=== PATIENT | female | born 1990 | race Caucasian/White ===

== ENCOUNTER 2018-11-25 07:32 | Inpatient (IN) ==
[2018-11-25] MEDS ORDERED: OXYTOCIN 30 UNITS/500 ML BAG IV PRN ×2 (08:28)
[2018-11-25 08:51] LABS: Hematocrit (blood only) 37.4 % (37-47); Hemoglobin 12.9 g/dL (12.0-16.0); Mean Corpuscular Hemoglobin 33.7 pg (25-34); Mean Corpuscular Volume 97.7 fL (80-100); Mean Platelet Volume 10.9 fL (7.4-10.4); Platelet Count 143 K/uL (130-400); RDW Coefficient of Variation 12.8 % (11.5-14.5); RDW Standard Deviation 45.1 fL (36.4-46.3); Red Blood Count 3.83 M/uL (4.2-5.4); White Blood Count 11.91 K/uL (4.8-10.8)
[2018-11-25 09:17] LABS: Mean Corpuscular Hgb Conc 34.5 g/dL (32-36)
[2018-11-25] MEDS: LACTATED RINGER'S 1,000 ML IV PRN ×3 (09:37→17:40)
--- NOTE | 2018-11-25 09:38 | History & Physical Report ---
Date of Service November 25, 2018 Assessment & Plan (1) Post term at 41 weeks gestation: 28 yo white female who presents for induction of labor because of post term . will begin pitocin induction anticipate vaginal History of Present Illness Primary Care Provider: HALINA Brennan Patient is a 28 yo white female EDC 11/15/18 who presents for induction of labor because of post term . otherwise is uncomplicated. GBS (-) Allergies Allergy/AdvReac Type Severity Reaction Status Date / Time No Known Drug Allergies Allergy Verified 11/19/18 11:05 Home Medications Home Medications Medication Instructions Recorded Confirmed Type vit-iron fum-folic ac 1 tab PO DAILY 11/25/18 11/25/18 History [ Vitamin] Patient History Medical History History of clubfoot History of varicella Surgical History S/P tonsillectomy Family History Grandmother (Maternal) Diabetes Hypertension Social History Preferred Language: Filipino Beliefs That Will Affect Care: None marital status: Current Living Situation: Spouse Other Information That Helps Us Care for You: No Feels Safe at Home: Yes Safety Concerns: Feels Safe At This Time Smoking Status: Never smoker Hx Alcohol Use: No Hx Substance Use: No Review of Systems All systems reviewed & are unremarkable except as noted in HPI & below Physical Exam Constitutional: WD/WN, vitals as above Respiratory: normal respiratory effort, lungs clear to auscultation Cardiovascular: RRR, no murmur, no edema Gastrointestinal (Abdomen): normal bowel sounds, soft, nontender, no hepatosplenomegaly Psychiatric: A+Ox3, euthymic affect Genitourinary: OB Exam Abdomen: + vertex, + estimated weight (8-9 ounds) and + irregular contractions Manual OB Exam: + cervical dilation 4 cm, + cervical effacement 50% and + station (-3) OB Exam Monitor Tracing: + external FHT monitor used, + external uterine monitor used, + category I and + normal FHT variability Results & Data Vital Signs (Past 12 Hours) Vital Signs Temp Pulse Resp BP 11/25/18 08:32 98.2 F 20 11/25/18 07:44 88 118/75
[2018-11-25] MEDS ORDERED: fentaNYL citrate 100 MCG/2 ML VIAL ONE (13:52)
[2018-11-25] MEDS ORDERED: ePHEDrine sulfate 50 MG/ML AMP ONE (13:52)
[2018-11-25] MEDS ORDERED: BUPIVACAINE 0.25% 30 ML VIAL ONE (13:53)
[2018-11-25] MEDS ORDERED: fentaNYL 2MCG/ML ROPIV 1.25MG/ML 100 ML BAG EPI ONE (14:06)
--- NOTE | 2018-11-25 14:10 | Anesthesiology Consultation ---
Date of Service November 25, 2018 Assessment & Plan Chart Review Chart Review: Patient NOT seen in Pre Admission Testing and Acceptable Risk for Labor Epidural Consults Requested none ASA ASA2 Proposed Anesthesia Anesthesia Type: Labor Epidural and CSE Risk / Benefits Reviewed With: PT / POA / Parent / Guardian, Accepts Plan and Informed Consent Obtained History Height/Weight Height: 5 ft 8 in Weight: 113.398 kg Allergies Allergy/AdvReac Type Severity Reaction Status Date / Time No Known Drug Allergies Allergy Verified 11/19/18 11:05 Medications Home Medications Medication Instructions Recorded Confirmed Last Taken vit-iron fum-folic ac 1 tab PO DAILY 11/25/18 11/25/18 11/25/18 06:30 [ Vitamin] Active Medications Generic Name Dose Route Start Last Admin Trade Name Freq PRN Reason Stop Dose Admin Lactated Ringer's 1,000 mls @ 125 mls/hr 11/25/18 08:28 11/25/18 09:37 Lr IV 11/27/18 08:27 125 mls/hr .Q8H PRN Administration L&D Protocol Protocol Oxytocin 30 units in 500 mls @ 7 mls/hr 11/25/18 08:28 11/25/18 11:42 Pitocin IV 11/27/18 08:27 0.42 units/hr .Q24H PRN 7 mls/hr Labor Induction/Augmentation Titration Protocol 0.42 UNITS/HR NPO Date Last Intake of Fluids: 11/25/18 Time Last Intake of Fluids: 13:00 Date Last Intake of Solids: 11/25/18 Time Last Intake of Solids: 06:00 Past Medical History Medical History History of clubfoot History of varicella Exercise / Class Metabolic Activity II 4-5 Yardwork/Stairs/Walk up hill Past Family History Family History Grandmother (Maternal) Diabetes Hypertension Past Surgical History Surgical History S/P tonsillectomy Past Anesthesia History No Hx of Anesthesia Complications and No Family Hx of Anesthesia Complications History of PONV No Hx of PONV and No Hx of Motion Sickness Social History Smoking Status: Never smoker Hx Alcohol Use: No Hx Substance Use: No substance use type: does not use Review of Systems no chest pain or sob Physical Exam Vital Signs Last Vital Signs Temp 36.9 C 11/25/18 12:01 Pulse 93 H 11/25/18 14:09 Resp 20 11/25/18 12:01 BP 121/74 11/25/18 14:08 Pulse Ox 97 11/25/18 14:09 ENMT Mouth: no TMJ abnormality Thyromental Distance: > or= 3.5 Finger Breadths Mallampati Class: II Neck normal visual inspection Respiratory normal respiratory effort Auscultation: lungs clear to auscultation bilaterally Cardiovascular Rate/Rhythm: regular rate and regular rhythm Musculoskeletal Spine: normal cervical ROM Neurologic moves all extremities Psychiatric Orientation: alert and oriented x 3 Testing Laboratory Results 11/25/18 08:40
[2018-11-25] MEDS ORDERED: NALOXONE HCL 1 MG in SODIUM CHLORIDE 0.9% 1000ML 1,000 ML IV PRN (14:12)
[2018-11-25] MEDS ORDERED: fentaNYL 2MCG/ML ROPIV 1.25MG/ML 100 ML BAG EPI PRN (14:12)
[2018-11-25] MEDS ORDERED: ePHEDrine sulfate 50 MG/ML AMP IV PRN (14:12)
[2018-11-25] MEDS ORDERED: ONDANSETRON INJ 2 MG/ML 2 ML VIAL IV PRN (14:12)
[2018-11-25] MEDS ORDERED: NALBUPHINE HCL INJ 10 MG/ML AMP IV PRN (14:12)
[2018-11-25] MEDS ORDERED: NALOXONE HCL 0.4 MG/1 ML VIAL/CARP IV PRN (14:12)
[2018-11-25] MEDS ORDERED: DiphenhydrAMINE HCL 50 MG/ML VIAL IV PRN (14:12)
--- NOTE | 2018-11-26 04:58 | Delivery Summary ---
DATE OF OPERATION: 11/26/2018 The patient is a 27-year-old G1, P0 white female who presents at 41+ weeks for induction of labor because of post-term . She received Pitocin augmentation of her contractions. Membranes were ruptured for clear fluid, approximately 4 cm dilated. She received effective epidural analgesia. She progressed to full dilation and pushed to . Because of maternal exhaustion, the vacuum was attempted, but popped off immediately, off of the caput; this was attempted twice. She then continued to push further bringing the caput to the perineum with manual stretching of the perineum. A medial lateral episiotomy was performed. At this point, the infant through maternal effort was delivered directly occiput posterior. There was terminal meconium. There was double nuchal cord which was reduced after delivery of the head. The rest of the delivered easily and was placed on the mother's abdomen for further attention and drying. There was vigorous crying and the was moving all 4 limbs. After a minute, the cord was clamped and cut. After cord blood was obtained, the placenta was expressed intact with a 3-vessel cord. The medial lateral episiotomy was repaired with 3-0 chromic in the usual fashion. Estimated blood loss was 400 mL. bleeding was controlled with dilute Pitocin. I attest to the content of the Intraoperative Record and any orders documented therein. Any exceptions are noted below. MTDD
[2018-11-26] MEDS ORDERED: OXYTOCIN 30 UNITS/500 ML BAG IV PRN (05:35)
[2018-11-26] MEDS ORDERED: DIPHTHERIA/TETANUS/PERTUSSIS 0.5 ML SYR/VIAL IM ONE (05:35)
[2018-11-26] MEDS ORDERED: HYDROCORTISONE ACETATE 25 MG SUPP PR PRN (05:35)
[2018-11-26] MEDS ORDERED: BENZOCAINE 20% AER SPR 82.5 GM CAN EXT PRN (05:35)
[2018-11-26] MEDS ORDERED: SUPERCREAM 0.870% 15 GM JAR EXT PRN (05:35)
[2018-11-26] MEDS ORDERED: OXYCODONE/ACETAMINOPHEN 5mg/325mg TAB PO PRN (05:35)
[2018-11-26] MEDS ORDERED: bisacodyL 10 MG SUPP PR PRN (05:35)
[2018-11-26] MEDS: IBUPROFEN 600 MG TAB PO PRN ×2 (08:07→14:53)
[2018-11-26] MEDS: PRENATAL VITAMIN 1 TAB PO SCH (08:07)
[2018-11-26] MEDS: DOCUSATE SODIUM 100 MG CAP PO SCH ×2 (08:07→21:06)
--- NOTE | 2018-11-26 08:51 | Anesthesia Procedure Note ---
Date of Service November 26, 2018 Anesthesia Post Epidural Note Vital Signs Vital Signs: Temp Pulse Resp BP Pulse Ox 36.7 C 104 H 18 120/76 97 11/26/18 08:30 11/26/18 08:30 11/26/18 08:30 11/26/18 08:30 11/26/18 08:30 Pain Intensity Bilateral Lower Abdomen: Pain Intensity: 3 Notes Mental Status: alert / awake / arousable and participated in evaluation Nausea / Vomiting: adequately controlled Pain: adequately controlled Airway Patency, RR, SpO2: stable & adequate BP & HR: stable & adequate Hydration State: stable & adequate Neuraxial Anesthesia: was administered and sensory block is resolving Anesthetic Complications: no major complications apparent Epidural: Removed without complications and With tip intact
[2018-11-26] MEDS: ACETAMINOPHEN 325 MG TAB PO PRN (16:41)
[2018-11-27] MEDS: IBUPROFEN 600 MG TAB PO PRN ×4 (00:13→14:41)
--- NOTE | 2018-11-27 05:06 | Obstetrical Progress Note ---
Date of Service November 27, 2018 Assessment & Plan (1) : 27 yo s/p VD @ 41w4d -PPD# 1 - GBS negative, Blood Type A- - Feels well today. Eating well, voiding well, ambulating well. - Pain well controlled. - Routine care - After discharge will have [address] Cornejo. Subjective Doing well this morning. Pain well controlled with Motrin. is going well. Bleeding is less than a heavy period and improving. She wanted to be discharged this afternoon if possible. Review of Systems Review of Systems: Denies fever, chills, sweats Denies shortness of breath, difficulty breathing, chest pain, palpitations. chest pressure. Denies breast pain. Denies dysuria. Denies headache. Physical Exam Physical Exam: General: Alert, oriented. No acute distress. Cardiac: Regular rate and rhythm, no murmurs/rubs/gallops. Respiratory: Clear to auscultation anterior and posteriorly, no wheezes/rales/rhonchi. No increased work of breathing. Symmetrical chest rise. No respiratory distress. Abdomen: Soft, nontender, nondistended. Bowel sounds present. Uterus: Uterine fundus firm, palpable 1 cm below umbilicus. Lower Extremities: No lower extremity edema or swelling. No deep calf pain. Justice's negative bilaterally. Results & Data Vital Signs (Past 12 Hours) Vital Signs Temp Pulse Resp BP Pulse Ox 11/27/18 00:05 36.5 C 98 H 16 114/73 98 11/26/18 20:00 37.0 C 108 H 16 113/80 97 PG Care Time/CCT Total # of Minutes Spent Total Time Spent with Patient: Total time spent is greater than 50% in coordination of care (as documented) at patient's floor/unit and/or counseling patient: Resident Activity Tracking Resident Involvement: Resident Care Provided Care Provided: OB Delivery
[2018-11-27 06:24] LABS: Hematocrit (blood only) 27.9 % (37-47); Hemoglobin 9.7 g/dL (12.0-16.0); Mean Corpuscular Hemoglobin 34.2 pg (25-34); Mean Corpuscular Hgb Conc 34.8 g/dL (32-36); Mean Corpuscular Volume 98.2 fL (80-100); Mean Platelet Volume 10.3 fL (7.4-10.4); Platelet Count 140 K/uL (130-400); RDW Standard Deviation 46.4 fL (36.4-46.3); Red Blood Count 2.84 M/uL (4.2-5.4); White Blood Count 17.75 K/uL (4.8-10.8)
--- NOTE | 2018-11-27 06:34 | Obstetrical Progress Note ---
Date of Service November 27, 2018 Assessment & Plan (1) : 27 yo s/p VD @ 41w4d -PPD# 1 - GBS negative, Blood Type A- - Feels well today. Eating well, voiding well, ambulating well. - Pain well controlled. - Routine care - After discharge will have [address] Cornejo. Supervising Physician Co-Signing Physician Notes Resident Physician Supervision Note: I interviewed and examined the patient. Discussed with Dr. Sacnhes and agree with findings and plan as documented in the note. Any exceptions or clarifications are listed here: Doing well. Routine care. Desires d/c this evening. Instructions reviewed. Documented By: Delores Hunter MD, FACOG Subjective Doing well this morning. Pain well controlled with Motrin. is going well. Bleeding is less than a heavy period and improving. She wanted to be discharged this afternoon if possible. Review of Systems Review of Systems: Denies fever, chills, sweats Denies shortness of breath, difficulty breathing, chest pain, palpitations. ches t pressure. Denies breast pain. Denies dysuria. Denies headache. Physical Exam Physical Exam: General: Alert, oriented. No acute distress. Cardiac: Regular rate and rhythm, no murmurs/rubs/gallops. Respiratory: Clear to auscultation anterior and posteriorly, no wheezes/rales/rhonchi. No increased work of breathing. Symmetrical chest rise. No respiratory distress. Abdomen: Soft, nontender, nondistended. Bowel sounds present. Uterus: Uterine fundus firm, palpable 1 cm below umbilicus. Lower Extremities: No lower extremity edema or swelling. No deep calf pain. Justice's negative bilaterally. Results & Data Vital Signs (Past 12 Hours) Vital Signs Temp Pulse Resp BP Pulse Ox 11/27/18 00:05 36.5 C 98 H 16 114/73 98 11/26/18 20:00 37.0 C 108 H 16 113/80 97 PG Care Time/CCT Total # of Minutes Spent Total Time Spent with Patient: Total time spent is greater than 50% in coordination of care (as documented) at patient's floor/unit and/or counseling patient:
[2018-11-27] MEDS: ACETAMINOPHEN 325 MG TAB PO PRN (07:28)
[2018-11-27] MEDS: DOCUSATE SODIUM 100 MG CAP PO SCH (10:11)
[2018-11-27] MEDS: PRENATAL VITAMIN 1 TAB PO SCH (10:12)
[2018-11-27] MEDS ORDERED: bisacodyL 5 MG TABEC PO SCH (20:00)
--- NOTE | 2018-11-29 06:03 | Discharge Summary ---
PRINCIPAL DIAGNOSES: Intrauterine at 41 weeks and successful induction of labor with vacuum-assisted vaginal delivery. HISTORY AND HOSPITAL COURSE: The patient is a 27-year-old G1, P0 white female who presented at 41 weeks for induction of labor because of post-term . Pitocin augmentation was used to augment her contractions. Membranes were ruptured for clear fluid. She received effective epidural analgesia and began to push when she was fully dilated. After an hour and a half because of maternal exhaustion and the infant's caput was at the introitus, a vacuum application was attempted, but was unsuccessful. This was tried twice, the vacuum cup would not stay attached and slipped right off with each application. After this, she continued to push more effectively after the Pitocin was increased and this was accompanied by manual stretching of the perineum. Once the bony portion of the vertex was at the hymenal ring, a mediolateral episiotomy was performed, at this point, the mother was able to easily deliver the rest of the infant. The patient had no complications. She was voiding without difficulty, ambulating without difficulty and eating regular diet the following morning of her delivery. She was sent home in good condition with the usual instructions.
== END 2018-11-27 18:15 | disposition home or self-care (01) | DRG 807 ==
LOC: 4S1 07:32 → 4S2 11-26 06:22

== ENCOUNTER 2021-04-13 07:40 | Inpatient (IN) ==
[2021-04-13] MEDS ORDERED: OXYTOCIN 30 UNITS/500 ML BAG IV PRN ×4 (08:13→20:03)
--- NOTE | 2021-04-13 08:27 | History & Physical Report ---
Date of Service April 13, 2021 Assessment & Plan (1) with 39 completed weeks gestation: (2) Encounter for induction of labor: Plan: Plan pitocin induction, epidural on demand, arom when indicated. efw 8-9. fetus category one. Will need rhogam. gbs negative. hx of covid earlier in the year. anticipate . Admission and Anticipated Discharge Date Admission Date: April 13, 2021 History of Present Illness Chief Complaint: presents for induction Primary Care Provider: HALINA Brennan Patient is a 30yowf with iup at39 4/7 weeks who presents for elective induction. Patient had an 8#7oz baby last delivery and pushed for approximately 4 hours and wanted early induction. has been uncomplicated. Notes good fm. Some cramping and spotting since hadley placed last night. It has not fallen out. and Delivery Plans (+) COVID 02/24/21 symptoms started 02/23 fully vaccinated- booster mid December 2020 Need for Rhogam d/t Rh negative mother -repeat antibody screen at 12 wks due to +screen at NO[facility] from miscarriage--still positive -repeat antibody screen at 14 weeks due to + screen at 12 weeks. -14wk screen negative. Rhogam given 01/23/21 SB *pt needs antibody screen and Rhogam on 04/17/21 if undelivered. Elective IOL- 04/13/21 with [facility]. OB Labs: Blood Type A Negative 09/02/20 Antibody Screen NEGATIVE 01/23/21 Hemoglobin 12.9 g/dL (12.0-16.0) 01/20/21 Hematocrit 38.5 % (37-47) 01/20/21 Mean Corpuscular Volume 92.8 fL (80-100) 09/02/20 Platelet Count 196 K/uL (130-400) 09/02/20 Rubella IgG Antibody Immune (Immune) 09/02/20 Rapid Plasma Reagin Nonreactive (Nonreactive) 09/02/20 Hepatitis B Surface Antigen Neg (Neg) 09/02/20 HIV (1&2) Ab and P24 Ag, 4th Gener Neg (Neg) 09/02/20 Glucose 1 Hour 50 gm Load 129 mg/dl (70-130) 01/20/21 Maternal Serum Alpha Fetoprotein 29.9 ng/mL 10/28/20 OB Optional Labs: Chlamydia trachomatis RNA NOT DETECTED (NOT DETECTED) 09/02/20 Neisseria gonorrhoeae RNA NOT DETECTED (NOT DETECTED) 09/02/20 Alpha Fetoprotein Triple Screen SEE NOTE 10/28/20 Labs Reviewed: cf/sma neg previous --akh msafp--negative cfDNA low risk \GBS negative. Allergies Allergy/AdvReac Type Severity Reaction Status Date / Time No Known Drug Allergies Allergy Unknown Verified 04/13/21 07:53 Home Medications Medication Instructions Recorded Confirmed Type prenat.vits,pankaj,eif-kicb-blfnb 1 cap PO DAILY 06/20/20 04/13/21 History Patient History Medical History History of clubfoot History of varicella Surgical History S/P clubfoot correction at S/P ear surgery ear canal reconstruction S/P myringotomy with insertion of tube S/P tonsillectomy Family History Grandmother (Maternal) Diabetes Hypertension Denies family history of Ovarian cancer Breast cancer Colorectal cancer Social History Smoking Status: Never smoker Hx Alcohol Use: No Hx Substance Use: No Preferred Language: Cook Islander Plate Developer Required: No Beliefs That Will Affect Care: None marital status: marital status details: Osman Franco (34) [phone] Current Living Situation: Spouse and Family Current Living Situation Comment: lives with spouse, son, no pets current occupational status: employed 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 Date GA wks Lbr Lgth wt Sex Type del Anes Place Del Prov ? Comment 11/26/18 41 8lb 7.1oz M Epi dural [facility] 06/08/20 Aborted-Spontaneous HOSPITALIST MEDICAL DIRECTOR History noncontributory Physical Exam Constitutional: WD/WN, vitals as above Cardiovascular: Extremities: no calf tenderness and no edema Gastrointestinal (Abdomen): soft, gravid, nt Psychiatric: A+Ox3, euthymic affect Genitourinary: cx--4/50/-2/soft, post toco--rare efm--130s wtih mod variability, accels to 150s, no decels hadley removed with slight tug of the bulb. Results & Data ([facility]) Vital Signs (Past 12 Hours) Vital Signs Temp Pulse Resp BP 04/13/21 07:50 36.7 C 78 18 110/69 04/13/21 07:49 78 110/69 Coding Level of Care Code None Diagnoses with 39 completed weeks gestation Z3A.39 Encounter for induction of labor Z34.90
[2021-04-13] MEDS: LACTATED RINGER'S 1,000 ML IV PRN ×3 (08:39→16:00)
[2021-04-13 08:42] LABS: Hematocrit (blood only) 36.1 % (37-47); Hemoglobin 12.5 g/dL (12.0-16.0); Mean Corpuscular Hemoglobin 33.7 pg (25-34); Mean Corpuscular Hgb Conc 34.6 g/dL (32-36); Mean Corpuscular Volume 97.3 fL (80-100); Mean Platelet Volume 10.8 fL (7.4-10.4); Platelet Count 154 K/uL (130-400); RDW Standard Deviation 46.1 fL (36.4-46.3); Red Blood Count 3.71 M/uL (4.2-5.4); White Blood Count 11.53 K/uL (4.8-10.8)
--- NOTE | 2021-04-13 09:53 | Medical Student H&P ---
Date of Service April 13, 2021 Assessment & Plan (1) with 39 completed weeks gestation: Plan: Patient is a 30-year-old female with IUP at 39 4/7 weeks based on LMP consistent with first trimester ultrasound who presents to labor and delivery for elective induction of labor. Plan: Pitocin induction. Epidural on demand, will artificially rupture membranes when indicated. Patient will need rhogam ( A- blood type). GBS negative. Rubella immune. category 1 based on EFM. COVID-19 infection Feb 2020, s/p fully vaccinated with booster Jan 01. Anticipate normal spontaneous vaginal delivery Per Dr. Hunter: efw 8-9. (2) Encounter for induction of labor: Admission and Anticipated Discharge Date Admission Date: April 13, 2021 History of Present Illness Chief Complaint: elective induction of labor Primary Care Provider: HALINA Brennan Patient is a 30-year-old female with IUP at 39 4/7 weeks based on LMP consistent with first trimester ultrasound who presents to labor and delivery for elective induction of labor. Patient delivered an 8 lb 7 oz baby after approx 4 hours of pushing in Nov 2018 and wished to deliver earlier for this . She states the baby is very active. She denies bleeding, leaking of fluid, or contractions at this time. 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 Patient tested positive for COVID 02/24/21, with sxs starting 02/23. She is fully vaccinated, with booster in Dec 2020. Patient has A- blood type, will need Rhogam. GBS -. Rubella immune. OB Labs: F Blood Type A Negative 09/02/20 Antibody Screen NEGATIVE 01/23/21 Hemoglobin 12.9 g/dL (12.0-16.0) 01/20/21 Hematocrit 38.5 % (37-47) 01/20/21 Mean Corpuscular Volume 92.8 fL (80-100) 09/02/20 Platelet Count 196 K/uL (130-400) 09/02/20 Rubella IgG Antibody Immune (Immune) 09/02/20 Rapid Plasma Reagin Nonreactive (Nonreactive) 09/02/20 Hepatitis B Surface Antigen Neg (Neg) 09/02/20 HIV (1&2) Ab and P24 Ag, 4th Gener Neg (Neg) 09/02/20 Glucose 1 Hour 50 gm Load 129 mg/dl (70-130) 01/20/21 Maternal Serum Alpha Fetoprotein 29.9 ng/mLB 10/28/20 OB Optional Labs: Chlamydia trachomatis RNA NOT DETECTED (NOT DETECTED) 09/02/20 Neisseria gonorrhoeae RNA NOT DETECTED (NOT DETECTED) 09/02/20 E Alpha Fetoprotein Triple Screen SEE NOTE 10/28/20 Labs Reviewed: cf/sma neg previous --akh msafp--negative cfDNA low risk \GBS negative. Allergies Allergy/AdvReac Type Severity Reaction Status Date / Time No Known Drug Allergies Allergy Unknown Verified 04/13/21 07:53 Home Medications Medication Instructions Recorded Confirmed Type prenat.vits,pankaj,bqo-udut-ivhoy 1 cap PO DAILY 06/20/20 04/13/21 History Patient History Medical History History of clubfoot History of varicella Surgical History S/P clubfoot correction at S/P ear surgery ear canal reconstruction S/P myringotomy with insertion of tube S/P tonsillectomy Family History Grandmother (Maternal) Diabetes Hypertension Denies family history of Ovarian cancer Breast cancer Colorectal cancer Social History Smoking Status: Never smoker Hx Alcohol Use: No Hx Substance Use: No Preferred Language: Beninese Ship/Rec/Doc Control Required: No Beliefs That Will Affect Care: None marital status: marital status details: Osman Franco (34) [phone] Current Living Situation: Spouse and Family Current Living Situation Comment: lives with spouse, son, no pets current occupational status: employed 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 weight: 8 lb 7 oz baby. ~4 hours of pushing, with unsuccessful vacuum procedure. Otherwise uncomplicated. G2: May 2020: spontaneous at 5.5 weeks. No other complications or sequelae. 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 Started OCPs at 14, periods became regular (~28 days). After discontinuing OCPs before planning for conception, periods were mostly regular (at most 1.5 mos b/w periods) Paps: normal paps No h/o STDs/STIs No society editor surgeries/procedures Review of Systems Denies headache Denies nausea/vomiting Denies SOB, cough, wheezing Denies chest pain, palpitations Denies urinary or fecal incontinence Denies urinary symptoms Denies abdominal pain Denies edema Denies calf pain or swelling Pain: 0/10 Physical Exam Physical Exam: General: Alert, oriented, in no acute distress. Well groomed. Cardiac: Regular rate and rhythm, normal S1, S2. No murmurs, rubs or gallops appreciated. Respiratory: Clear to auscultation b/l with good air flow entry, symmetric chest rise and fall. No wheezes or crackles. No increased work of breathing or accessory muscle use Abdomen: Gravid, soft, nontender. No guarding Skin: No rashes or lesions Extremities: Warm, dry, well-perfused with capillary refill <2s b/l. Strong pulses b/l. No lower extremity edema, erythema or swelling. Pelvic Exam per Dr. Hunter Dilation: 4 cm Effacement: 50% Station: -2 soft, posterior FHR/EFM: Baseline: 120s BPM Variability: moderate Accelerations: to 150 Decelerations: None [place]: rare (small amplitude) Results & Data ([facility]) Vital Signs (Past 12 Hours) Vital Signs Temp Pulse Resp BP 04/13/21 08:58 78 109/72 04/13/21 07:50 36.7 C 78 18 110/69 04/13/21 07:49 78 110/69
[2021-04-13] MEDS ORDERED: BUPIVACAINE 0.25% 30 ML VIAL ONE (12:27)
[2021-04-13] MEDS ORDERED: SODIUM CHLORIDE 0.9% INJ 10 ML VIAL ONE (12:27)
[2021-04-13] MEDS ORDERED: ePHEDrine sulfate 50 MG/ML AMP ONE (12:27)
[2021-04-13] MEDS ORDERED: fentaNYL 2MCG/ML ROPIVACAINE 1.25MG/ML 100 ML BAG EPI ONE (12:28)
[2021-04-13] MEDS ORDERED: fentaNYL citrate 100 MCG/2 ML VIAL ONE (12:28)
[2021-04-13] MEDS ORDERED: diphenhydrAMINE 50 MG/ML VIAL IV PRN (12:58)
[2021-04-13] MEDS ORDERED: ONDANSETRON INJ 2 MG/ML 2 ML VIAL IV PRN (12:58)
[2021-04-13] MEDS ORDERED: NALOXONE HCL 1 MG in SODIUM CHLORIDE 0.9% 1000ML 1,000 ML IV PRN (12:58)
[2021-04-13] MEDS ORDERED: fentaNYL 2MCG/ML ROPIVACAINE 1.25MG/ML 100 ML BAG EPI PRN (12:58)
[2021-04-13] MEDS ORDERED: NALOXONE HCL 0.4 MG/1 ML VIAL/CARP IV PRN (12:58)
[2021-04-13] MEDS ORDERED: ePHEDrine sulfate 50 MG/ML AMP IV PRN (12:58)
[2021-04-13] MEDS ORDERED: NALBUPHINE HCL INJ 10 MG/ML AMP IV PRN (12:58)
--- NOTE | 2021-04-13 13:00 | Anesthesiology Consultation ---
Date of Service April 13, 2021 Assessment & Plan (1) Encounter for pre-operative examination: Chart Review Chart Review: Patient NOT seen in Pre Admission Testing and Acceptable Risk for Labor Epidural Consults Requested none History Height/Weight Height: 5 ft 8 in Weight: 114.305 kg Allergies Allergy/AdvReac Type Severity Reaction Status Date / Time No Known Drug Allergies Allergy Unknown Verified 04/13/21 07:53 Medications Home Medications Medication Instructions Recorded Confirmed Last Taken prenat.vits,pankaj,kvs-bohu-ccyxa 1 cap PO DAILY 06/20/20 04/13/21 04/12/21 20:00 Active Medications Generic Name Dose Route Start Last Admin Trade Name Freq PRN Reason Stop Dose Admin Oxytocin 30 units in 500 mls @ 16 mls/hr 04/13/21 08:13 04/13/21 12:30 Pitocin IV 04/15/21 08:12 0.96 units/hr .Q24H PRN 16 mls/hr Labor Induction/Augmentation Titration Protocol 0.96 UNITS/HR Lactated Ringer's 1,000 mls @ 125 mls/hr 04/13/21 08:13 04/13/21 13:00 Lr IV 04/15/21 08:12 999 mls/hr .Q8H PRN Infusion L&D Protocol Protocol Past Medical History Medical History History of clubfoot History of varicella Exercise / Class Metabolic Activity II 4-5 Yardwork/Stairs/Walk up hill Past Family History Family History Grandmother (Maternal) Diabetes Hypertension Denies family history of Ovarian cancer Breast cancer Colorectal cancer Past Surgical History Surgical History S/P clubfoot correction at S/P ear surgery ear canal reconstruction S/P myringotomy with insertion of tube S/P tonsillectomy Past Anesthesia History No Hx of Anesthesia Complications and No Family Hx of Anesthesia Complications History of PONV No Hx of PONV and No Hx of Motion Sickness Social History Smoking Status: Never smoker Hx Alcohol Use: No Hx Substance Use: No substance use type: does not use Physical Exam Vital Signs Last Vital Signs Temp 36.4 C L 04/13/21 11:00 Pulse 93 H 04/13/21 13:23 Resp 18 04/13/21 10:30 BP 120/72 04/13/21 13:23 Pulse Ox 97 04/13/21 13:19 Testing Laboratory Results 04/13/21 08:26
[2021-04-13] MEDS ORDERED: NURSING L&D Epidural Breakthrough Pain Update ONE (14:13)
--- NOTE | 2021-04-13 14:26 | Labor Progress Brief Note ---
Date of Service April 13, 2021 Subjective comfortable with epidural Assessment & Plan (1) with 39 completed weeks gestation: Plan: continue current management. fetus category one. anticipate Admission and Anticipated Discharge Date Admission Date: April 13, 2021 Physical Exam 2 Physical Exam: cx--5/75/-2 arom--clear toco--q2-4, pit at 16 efm--130s with mod variability, accels to 160s, no decels Results & Data ([facility]) Vital Signs (Past 12 Hours) Vital Signs Temp Pulse Resp BP Pulse Ox 04/13/21 14:19 79 97 04/13/21 14:14 84 96 04/13/21 14:09 77 111/71 96 04/13/21 14:04 76 102/68 97 04/13/21 14:00 75 107/68 04/13/21 13:59 77 96 04/13/21 13:55 80 111/72 04/13/21 13:54 78 97 04/13/21 13:49 81 105/69 97 04/13/21 13:44 82 108/72 96 04/13/21 13:40 82 112/72 04/13/21 13:39 86 97 04/13/21 13:34 77 104/69 97 04/13/21 13:29 82 106/70 96 04/13/21 13:25 85 111/73 04/13/21 13:24 73 96 04/13/21 13:23 93 H 120/72 04/13/21 13:19 82 117/72 97 04/13/21 13:14 91 H 98 04/13/21 13:09 87 98 04/13/21 13:04 78 97 04/13/21 12:59 82 97 04/13/21 12:54 75 96 04/13/21 12:49 74 97 04/13/21 12:44 77 97 04/13/21 12:02 72 100/56 L 04/13/21 11:00 36.4 C L 68 104/66 04/13/21 10:30 18 04/13/21 10:04 68 111/74 04/13/21 08:58 78 109/72 04/13/21 07:50 36.7 C 78 18 110/69 04/13/21 07:49 78 110/69 Coding Level of Care Code None Diagnoses with 39 completed weeks gestation Z3A.39
--- NOTE | 2021-04-13 15:12 | Labor Progress Brief Note ---
Date of Service April 13, 2021 Subjective comfortable Assessment & Plan (1) with 39 completed weeks gestation: Plan: continue current management. fetus category one. 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 contractions, iupc placed efm--130s wtih mod variability, accels to 160s, no decels cx--5-6/75/-2 Results & Data ([facility]) Vital Signs (Past 12 Hours) Vital Signs Temp Pulse Resp BP Pulse Ox 04/13/21 15:04 72 115/57 L 96 04/13/21 14:59 69 96 04/13/21 14:55 66 88/53 L 04/13/21 14:54 66 96 04/13/21 14:49 84 97 04/13/21 14:46 81 92/51 L 04/13/21 14:44 71 98 04/13/21 14:40 73 89/56 L 04/13/21 14:39 69 96 04/13/21 14:34 73 97 04/13/21 14:31 72 90/53 L 04/13/21 14:30 36.4 C L 04/13/21 14:29 69 97 04/13/21 14:28 76 89/53 L 04/13/21 14:26 71 86/51 L 04/13/21 14:25 73 83/51 L 04/13/21 14:24 73 98 04/13/21 14:19 79 97 04/13/21 14:14 84 96 04/13/21 14:09 77 111/71 96 04/13/21 14:04 76 102/68 97 04/13/21 14:00 75 107/68 04/13/21 13:59 77 96 04/13/21 13:55 80 111/72 04/13/21 13:54 78 97 04/13/21 13:49 81 105/69 97 04/13/21 13:44 82 108/72 96 04/13/21 13:40 82 112/72 04/13/21 13:39 86 97 04/13/21 13:34 77 104/69 97 04/13/21 13:29 82 106/70 96 04/13/21 13:25 85 111/73 04/13/21 13:24 73 96 04/13/21 13:23 93 H 120/72 04/13/21 13:19 82 117/72 97 04/13/21 13:14 91 H 98 04/13/21 13:09 87 98 04/13/21 13:04 78 97 04/13/21 12:59 82 97 04/13/21 12:54 75 96 04/13/21 12:49 74 97 04/13/21 12:44 77 97 04/13/21 12:02 72 100/56 L 04/13/21 11:00 36.4 C L 68 104/66 04/13/21 10:30 18 04/13/21 10:04 68 111/74 04/13/21 08:58 78 109/72 04/13/21 07:50 36.7 C 78 18 110/69 04/13/21 07:49 78 110/69 Coding Level of Care Code None Diagnoses with 39 completed weeks gestation Z3A.39
--- NOTE | 2021-04-13 18:30 | Labor Progress Brief Note ---
Date of Service April 13, 2021 Subjective late entry because of patient care. comfortable and noting pressure Assessment & Plan (1) Encounter for induction of labor: Plan: was going to labor down and will push in one hour. Fetus reassuring. Anticipate . Admission and Anticipated Discharge Date Admission Date: April 13, 2021 Physical Exam Physical Exam: cx--c/c/0 tocc--q2-3min efm--130s wtih mod variability, accels present Results & Data ([facility]) Vital Signs (Past 12 Hours) Vital Signs Temp Pulse Resp BP Pulse Ox 04/13/21 18:24 93 H 98 04/13/21 18:19 93 H 98 04/13/21 18:14 86 97 04/13/21 18:09 83 100 04/13/21 18:05 36.4 C L 18 04/13/21 18:04 77 97 04/13/21 18:02 88 107/67 04/13/21 17:59 89 98 04/13/21 17:54 89 97 04/13/21 17:49 84 99 04/13/21 17:44 93 H 97 04/13/21 17:39 84 97 04/13/21 17:34 102 H 97 04/13/21 17:33 101 H 107/74 04/13/21 17:29 100 H 98 04/13/21 17:24 71 98 04/13/21 17:19 75 97 04/13/21 17:14 86 96 04/13/21 17:09 83 96 04/13/21 17:04 71 96 04/13/21 17:02 36.4 C L 18 04/13/21 17:01 81 98/52 L 04/13/21 16:59 78 97 04/13/21 16:54 95 H 97 04/13/21 16:53 81 105/58 L 04/13/21 16:49 81 97 04/13/21 16:44 69 97 04/13/21 16:39 69 97 04/13/21 16:34 78 95 04/13/21 16:32 80 88/51 L 04/13/21 16:29 68 96 04/13/21 16:24 80 95 04/13/21 16:19 74 98 04/13/21 16:14 71 97 04/13/21 16:10 35.6 C L 18 04/13/21 16:09 78 97 04/13/21 16:04 77 97 04/13/21 15:59 79 97 04/13/21 15:54 99 H 95 04/13/21 15:49 89 96 04/13/21 15:46 86 123/57 L 04/13/21 15:44 77 96 04/13/21 15:39 70 96 04/13/21 15:34 72 97 04/13/21 15:32 75 117/61 04/13/21 15:29 73 98 04/13/21 15:24 80 97 04/13/21 15:19 81 97 04/13/21 15:14 72 97 04/13/21 15:11 80 125/69 04/13/21 15:09 94 H 96 04/13/21 15:05 36.4 C L 04/13/21 15:04 72 115/57 L 96 04/13/21 14:59 69 96 04/13/21 14:55 66 88/53 L 04/13/21 14:54 66 96 04/13/21 14:49 84 97 04/13/21 14:46 81 92/51 L 04/13/21 14:44 71 98 04/13/21 14:40 73 89/56 L 04/13/21 14:39 69 96 04/13/21 14:34 73 97 04/13/21 14:31 72 90/53 L 04/13/21 14:30 36.4 C L 04/13/21 14:29 69 97 04/13/21 14:28 76 89/53 L 04/13/21 14:26 71 86/51 L 04/13/21 14:25 73 83/51 L 04/13/21 14:24 73 98 04/13/21 14:19 79 97 04/13/21 14:14 84 96 04/13/21 14:09 77 111/71 96 04/13/21 14:04 76 102/68 97 04/13/21 14:00 75 107/68 04/13/21 13:59 77 96 04/13/21 13:55 80 111/72 04/13/21 13:54 78 97 04/13/21 13:49 81 105/69 97 04/13/21 13:44 82 108/72 96 04/13/21 13:40 82 112/72 04/13/21 13:39 86 97 04/13/21 13:34 77 104/69 97 04/13/21 13:29 82 106/70 96 04/13/21 13:25 85 111/73 04/13/21 13:24 73 96 04/13/21 13:23 93 H 120/72 04/13/21 13:19 82 117/72 97 04/13/21 13:14 91 H 98 04/13/21 13:09 87 98 04/13/21 13:04 78 97 04/13/21 12:59 82 97 04/13/21 12:54 75 96 04/13/21 12:49 74 97 04/13/21 12:44 77 97 04/13/21 12:02 72 100/56 L 04/13/21 11:00 36.4 C L 68 104/66 04/13/21 10:30 18 04/13/21 10:04 68 111/74 04/13/21 08:58 78 109/72 04/13/21 07:50 36.7 C 78 18 110/69 04/13/21 07:49 78 110/69 Coding Level of Care Code None Diagnoses Encounter for induction of labor Z34.90
[2021-04-13] MEDS ORDERED: DIPHTHERIA/TETANUS/PERTUSSIS 0.5 ML SYR/VIAL IM ONE (19:50)
[2021-04-13] MEDS ORDERED: BENZOCAINE 20% AER SPR 82.5 GM CAN EXT PRN ×2 (19:50→20:03)
[2021-04-13] MEDS ORDERED: bisacodyL 10 MG SUPP PR PRN ×2 (19:50→20:03)
[2021-04-13] MEDS ORDERED: METHYLERGONOVINE MALEATE 0.2 MG/ML AMP IM ONE ×2 (19:50→20:03)
[2021-04-13] MEDS ORDERED: ACETAMINOPHEN 325 MG TAB PO PRN ×2 (19:50→20:03)
[2021-04-13] MEDS ORDERED: oxyCODONE/ACETAMINOPHEN 5mg/325mg TAB PO PRN ×2 (19:50→20:03)
[2021-04-13] MEDS ORDERED: HYDROCORTISONE ACETATE 25 MG SUPP PR PRN ×2 (19:50→20:03)
--- NOTE | 2021-04-13 19:55 | Delivery Summary ---
Vaginal Delivery Summary Date of Service April 13, 2021 Vaginal Delivery Summary and 2nd Degree LAC Pre-operative Diagnosis: at 39 weeks elective induction Post-operative Diagnosis: same Procedure: Mendieta for cervical ripening pit induction epidural arom iupc second degree laceration and repair EBL: 400cc Anesthesia: epidural Procedure: The patient presents for elective induction. Mendieta was removed with gentle tug this am. Underwent pit, arom, epidural, iupc. She progressed to c/c/+1. The patient pushed for about 45 minutes to deliver a viable male infant in marta position. The nose and mouth were bulb suctioned on the perineum and the rest of the infant was then delivered without difficulty. The baby was vigorous. No nuchal cord. The nose and mouth were again bulb suctioned on the maternal abdomen and had drying and attention. Cord was clamped and cut at one minute of life. Cord blood and segment obtained. Placenta delivered spontaneous, intact with a three vessel cord. Cervix/sulci/rectum were intact. A second degree perineal laceration was repaired in the normal standard fashion. Hemostasis obtained with dilute pitocin and fundal massage, methergine. Apgars were 9/9. Mother and baby doing well at the end of the delivery. [facility] [place] Vaginal Delivery Charge Delivery Type Details: and 2nd Degree LAC
--- NOTE | 2021-04-13 20:11 | Anesthesia Procedure Note ---
Date of Service April 13, 2021 Anesthesia Post Epidural Note Vital Signs Vital Signs: Temp Pulse Resp BP Pulse Ox 36.4 C L 90 18 105/68 96 04/13/21 18:35 04/13/21 19:59 04/13/21 18:35 04/13/21 19:59 04/13/21 19:30 Pain Intensity Lower Abdomen: Pain Intensity: 0 Notes Mental Status: alert / awake / arousable and participated in evaluation Patient Amnestic to Procedure: No Nausea / Vomiting: adequately controlled Pain: adequately controlled Airway Patency, RR, SpO2: stable & adequate BP & HR: stable & adequate Hydration State: stable & adequate Neuraxial Anesthesia: was administered and sensory block is resolving Anesthetic Complications: no major complications apparent and Pt Satisfied with anesthetic care Epidural: Removed without complications and With tip intact
[2021-04-13] MEDS ORDERED: DOCUSATE SODIUM 100 MG CAP PO SCH (21:00)
[2021-04-13] MEDS ORDERED: METHYLERGONOVINE MALEATE 0.2 MG/ML AMP ONE (22:47)
[2021-04-14] MEDS: IBUPROFEN 600 MG TAB PO PRN ×5 (00:40→19:47)
--- NOTE | 2021-04-14 05:32 | Obstetrical Progress Note ---
Date of Service <Tamara Aparicio MD - Last Filed: 04/14/21 07:13> April 14, 2021 Assessment & Plan <Tamara Aparicio MD - Last Filed: 04/14/21 07:13> (1) Vaginal delivery: 30 yo now PPD1 from at 39wk4d -Continue routine care, possible discharge this evening pending stability and 24 hour maty complete -Vitals reviewed- HDS, afebrile -Blood type A-, GBS-, Rubella immune. May require Rhogam shot if child is Rh+ -Encourage ambulation -Pain control with ibuprofen, acetaminophen PRN -Encourage -Hgb 11.4 today -F/u in 6 weeks with OB <Delores Hunter MD, FACOG - Last Filed: 04/14/21 07:34> (1) Vaginal delivery: Subjective <Tamara Aparicio MD - Last Filed: 04/14/21 07:13> Ambulation: ambulating normally Voiding: no voiding problems Passing Gas:: Yes Diet Tolerance:: regular diet Lochia:: Moderate Feeding Type:: breast feeding Current Pain Level(1-10): 2 Pt doing well overall, no acute complaints or distress. Pain well controlled with medication. going well, bleeding slowing down. Review of Systems Denies fever/chills. Denies dyspnea, cough. Denies chest pain. Denies breast pain or discharge. Denies dysuria. Denies headache. Denies back pain. Physical Exam <Tamara Aparicio MD - Last Filed: 04/14/21 07:13> General: Alert, oriented, no acute distress Cardiac: Regular rate and rhythm, normal S1, S2. No murmurs appreciated. Respiratory: Clear to auscultation b/l with good air flow entry, symmetric chest rise and fall. No wheezes or crackles. No increased work of breathing or accessory muscle use Abdomen: Soft, nontender, nondistended. Fundus firm and palpable at 1 cm below umbilicus. No guarding or rebound. Skin: No rashes or lesions Extremities: Warm, dry, well-perfused with capillary refill <2s b/l. No lower extremity edema, erythema or swelling. Negative Justice's sign b/l. Results & Data ([facility]) <Tamara Aparicio MD - Last Filed: 04/14/21 07:13> Vital Signs (Past 12 Hours) Vital Signs Temp Pulse Pulse Resp BP BP Pulse Ox 04/14/21 04:00 36.4 C L 75 16 105/69 97 04/14/21 00:15 36.6 C 78 16 103/68 97 04/13/21 22:14 84 104/61 04/13/21 21:59 82 106/64 04/13/21 21:44 85 103/62 04/13/21 21:29 87 107/65 04/13/21 21:14 89 110/70 04/13/21 20:59 92 H 108/68 04/13/21 20:44 81 107/56 L 04/13/21 20:30 90 119/58 L 04/13/21 20:14 83 104/64 04/13/21 19:59 90 105/68 04/13/21 19:44 90 99/59 L 04/13/21 19:30 92 H 96 04/13/21 19:29 89 97/52 L 04/13/21 19:28 92 H 96/52 L 04/13/21 19:26 98 H 99/57 L 04/13/21 19:25 92 H 96 04/13/21 19:20 93 H 96 04/13/21 19:15 113 H 96 04/13/21 19:13 94 H 93 04/13/21 19:10 95 H 97 04/13/21 19:07 93 H 93 04/13/21 19:05 96 H 96 04/13/21 19:02 96 H 98/55 L 04/13/21 19:00 113 H 96 04/13/21 18:55 99 H 96 04/13/21 18:54 91 H 92 04/13/21 18:49 107 H 97 04/13/21 18:47 77 91 04/13/21 18:44 62 97 04/13/21 18:39 114 H 97 04/13/21 18:35 36.4 C L 18 04/13/21 18:34 116 H 98 04/13/21 18:33 112 H 104/60 04/13/21 18:29 121 H 99 04/13/21 18:24 93 H 98 04/13/21 18:19 93 H 98 04/13/21 18:14 86 97 04/13/21 18:09 83 100 04/13/21 18:05 36.4 C L 18 04/13/21 18:04 77 97 04/13/21 18:02 88 107/67 04/13/21 17:59 89 98 04/13/21 17:54 89 97 04/13/21 17:49 84 99 04/13/21 17:44 93 H 97 04/13/21 17:39 84 97 04/13/21 17:34 102 H 97 04/13/21 17:33 101 H 107/74 <Delores Hunter MD, FACOG - Last Filed: 04/14/21 07:34> Co-Signing Physician Notes Resident Physician Supervision Note: I interviewed and examined the patient. Discussed with Dr. Aparicio and agree with findings and plan as documented in the note. Any exceptions or clarifications are listed here: Doing well. Routine pp care. May desire d/c tonight. Wants to see how the day goes. Delivered late in the day. Documented By: Delores Hunter MD, FACOG Resident Activity Tracking <Tamara Aparicio MD - Last Filed: 04/14/21 07:13> Resident Involvement: Resident Care Provided Care Provided: OB Delivery
[2021-04-14 06:28] LABS: Hemoglobin 11.4 g/dL (12.0-16.0)
--- NOTE | 2021-04-14 07:24 | Medical Student Progress Note ---
Date of Service April 14, 2021 Assessment & Plan (1) Vaginal delivery: Plan: Patient is a female who is PPD 1 after at 39 4/7. -Continue routine care -Vitals reviewed- HDS, afebrile, all WNL -Blood type A-; will require Rhogam if baby's blood type is positive -GBS negative - Rubella immune - Continue ambulation, regular diet -Pain control with ibuprofen, acetaminophen PRN -Continue - Hgb 11.4 (3/4) - D/C later today or tomorrow - follow up in 6 weeks Admission and Anticipated Discharge Date Admission Date: April 13, 2021 Subjective Patient is a female who is PPD 1 after at 39 4/7. She received methergine after delivering. Her was without complications. This m orning she is ambulating well, voiding urine, and consuming a regular diet without nausea and vomiting. She has not made a bm or passed gas as of this morning. Lochia is moderate, w/ changing of pad every 2 hours without large clots. She is exclusively ; this is going well. Her pain is 5-6/10 when she is breast feeding, but overall her pain is 2/10, well-controlled with motrin. Review of Systems: Denies fevers/chills Denies SOB/cough/wheeze Denies CP/palpitations Denies breast pain/discharge Denies UTI sx Denies headache Denies back pain Physical Exam Physical Exam: General: Well-appearing. Alert, oriented, no acute distress. Cardiac: Regular rate and rhythm, normal S1, S2. No murmurs, rubs or gallops appreciated. Respiratory: Clear to auscultation b/l with good air flow entry, symmetric chest rise and fall. No wheezes, crackles, rales. No increased work of breathing or accessory muscle use Abdomen: Soft, nontender, nondistended. Fundus firm and palpable at 1 cm below umbilicus. No guarding or rebound. Skin: No rashes or lesions Extremities: Warm, dry, well-perfused with capillary refill <2s b/l. No lower extremity edema, erythema or swelling. Strong pulses in b/l LE. Results & Data ([facility]) Vital Signs (Past 12 Hours) Vital Signs Temp Pulse Pulse Resp BP BP Pulse Ox 04/14/21 04:00 36.4 C L 75 16 105/69 97 04/14/21 00:15 36.6 C 78 16 103/68 97 04/13/21 22:14 84 104/61 04/13/21 21:59 82 106/64 04/13/21 21:44 85 103/62 04/13/21 21:29 87 107/65 04/13/21 21:14 89 110/70 04/13/21 20:59 92 H 108/68 04/13/21 20:44 81 107/56 L 04/13/21 20:30 90 119/58 L 04/13/21 20:14 83 104/64 04/13/21 19:59 90 105/68 04/13/21 19:44 90 99/59 L 04/13/21 19:30 92 H 96 04/13/21 19:29 89 97/52 L 04/13/21 19:28 92 H 96/52 L 04/13/21 19:26 98 H 99/57 L 04/13/21 19:25 92 H 96 04/13/21 19:20 93 H 96 04/13/21 19:15 113 H 96 04/13/21 19:13 94 H 93
[2021-04-14] MEDS: DOCUSATE SODIUM 100 MG CAP PO SCH ×2 (07:30→19:47)
[2021-04-14] MEDS: PRENATAL VITAMIN 1 TAB PO SCH (07:30)
[2021-04-14] MEDS ORDERED: PRENATAL VITAMIN 1 TAB PO SCH (08:00)
[2021-04-14] MEDS ORDERED: bisacodyL 5 MG TABEC PO SCH ×2 (20:00)
[2021-04-15] MEDS: IBUPROFEN 600 MG TAB PO PRN ×2 (00:16→05:53)
--- NOTE | 2021-04-15 05:31 | Obstetrical Progress Note ---
Date of Service <Tamara Aparicio MD - Last Filed: 04/15/21 07:36> April 15, 2021 Assessment & Plan <Tamara Aparicio MD - Last Filed: 04/15/21 07:36> (1) Vaginal delivery: 30 yo now PPD2 from at 39wk4d -Discharge today -Vitals reviewed- HDS, afebrile -Blood type A-, GBS-, Rubella immune -Pain control with ibuprofen, acetaminophen PRN -F/u in 6 weeks with OB <Tangela Torres DO - Last Filed: 04/15/21 07:58> (1) Vaginal delivery: Subjective <Tamara Aparicio MD - Last Filed: 04/15/21 07:36> Ambulation: ambulating normally Voiding: no voiding problems Passing Gas:: Yes Diet Tolerance:: regular diet Lochia:: Moderate Feeding Type:: breast feeding Current Pain Level(1-10): 0 Pt doing well overall, no acute complaints or distress. Pain well controlled with medication. going well, bleeding slowing down. Review of Systems Denies fever/chills. Denies dyspnea, cough. Denies chest pain. Denies breast pain or discharge. Denies dysuria. Denies headache. Denies back pain. Physical Exam <Tamara Aparicio MD - Last Filed: 04/15/21 07:36> General: Alert, oriented, no acute distress Cardiac: Regular rate and rhythm, normal S1, S2. No murmurs appreciated. Respiratory: Clear to auscultation b/l with good air flow entry, symmetric chest rise and fall. No wheezes or crackles. No increased work of breathing or accessory muscle use Abdomen: Soft, nontender, nondistended. Fundus firm and palpable at 1 cm below umbilicus. No guarding or rebound. Skin: No rashes or lesions Extremities: Warm, dry, well-perfused with capillary refill <2s b/l. No lower extremity edema, erythema or swelling. Negative Justice's sign b/l. Results & Data ([facility]) <Tamara Aparicio MD - Last Filed: 04/15/21 07:36> Vital Signs (Past 12 Hours) Vital Signs Temp Pulse Resp BP Pulse Ox 04/14/21 23:10 36.9 C 76 16 101/63 98 04/14/21 19:42 36.7 C 82 16 101/62 97 <Tangela Torres DO - Last Filed: 04/15/21 07:58> Co-Signing Physician Notes Resident Physician Supervision Note: I was present with Dr. Aparicio during the history and exam. I discussed the case with the resident and agree with the findings and plan as documented in the note. Any exceptions or clarifications are listed here: PPD#2 doing well. DC instructions reviewed. Followup 6w . Documented By: Tangela Torres DO Resident Activity Tracking <Tmaara Aparicio MD - Last Filed: 04/15/21 07:36> Resident Involvement: Resident Care Provided Care Provided: OB Delivery
[2021-04-15] MEDS: DOCUSATE SODIUM 100 MG CAP PO SCH (07:30)
[2021-04-15] MEDS: PRENATAL VITAMIN 1 TAB PO SCH (07:48)
== END 2021-04-15 10:30 | disposition home or self-care (01) | DRG 807 ==
LOC: 4S1 07:40 → 4S2 23:05